=== PATIENT | male | born 1995 | race African-American/Black ===

== ENCOUNTER → 2017-11-25 | Outpatient (CLI) | payer SELFPAY | END | disposition home or self-care (01) | LOC: RAD 11-16 13:00 | DX: Z82.49 Family history of ischemic heart disease and other diseases of the circulatory system (principal); Z86.69 Personal history of other diseases of the nervous system and sense organs | CPT/HCPCS: 70450 ==

== ENCOUNTER 2017-12-06 01:34 | Emergency (ER) | payer SELFPAY ==
[~2017-12-06] VITALS: Ht 172.7 cm; Wt 65.5 kg
[2017-12-06 02:16] LABS: APPEARANCE SL.HAZY ((CLEAR)); BILIRUBIN NEGATIVE; BLOOD NEGATIVE; COLOR YELLOW ((YELLOW)); GLUCOSE (STRIP) NEGATIVE; KETONES NEGATIVE; LEUKOCYTES MODERATE; NITRITE NEGATIVE; PROTEIN (STRIP) 30; SPECIFIC GRAVITY 1.028 (1.000-1.030)
[2017-12-06 02:18] LABS: SOURCE URINE
[2017-12-06 02:22] LABS: BACTERIA RARE /HPF; EPITHELIAL CELLS NONE SEEN /HPF; MUCUS 2+ /LPF; RED BLOOD CELLS 0-5 /HPF (0-5); UCUL ADDED? YES; WHITE BLOOD CELLS TNTC /HPF (0-5)
[2017-12-06 02:36] VITALS: BP 134/88
[2017-12-07 13:33] LABS: CHLAMYDIA TRACHOMATIS NEGATIVE; NEISSERIA GONORRHOEAE POSITIVE
== END 2017-12-06 02:36 | disposition home or self-care (01) ==
LOC: EME 01:34
PROVIDERS: Physician Assistant
DX: R36.9 Urethral discharge, unspecified (principal); N34.2 Other urethritis; Z11.3 Encounter for screening for infections with a predominantly sexual mode of transmission
CPT/HCPCS: 81003; 87086; 87491; 87591; 99281; 99284; J0696